=== PATIENT | male | born 2000 | race Caucasian/White ===

== ENCOUNTER 2023-01-04 13:04 | Emergency (ER) | payer OTHER, SELFPAY ==
[2023-01-04 13:12] VITALS: BP 128/82; PULSE 84; RESP 20; TEMP 37; O2SAT 100
--- NOTE | 2023-01-04 13:22 | ED.EXTPRO ---
HPI - Extremity Problem General Chief complaint: Extremity Problem,Nontraumatic Stated complaint: left foot ingrown toenail History of Present Illness HPI Narrative: Pt is a 22 y/o male, presents to with left great toe pain for the past two weeks secondary to an ingrown toenail. He denies modifying factors. he has no fevers or history of MRSA. Immunizations are UTD Related Data Allergies Allergy/AdvReac Type Severity Reaction Status Date / Time No Known Allergies Allergy Verified 01/04/23 13:12 Review of Systems Musculoskeletal: Comments: refer to HPI Exam Const: General: healthy appearing, no acute distress and alert Nutritional Appearance: well nourished Orientation/consciousness: patient oriented x3 HENMT: Head: normal to inspection Ears: external ears normal and TM's normal bilaterally Face/Nose/Sinus: Normal external nose present and Normal nares present Mouth: Yes Normal oral and palatal mucosa present and Yes lip normal Throat: posterior oropharynx normal Eyes: Conjunctivae: conjunctivae normal Pupils: Equal, round and reactive pupils present EOM: EOMs intact bilaterally Neck: Neck: normal visual inspection and no lymphadenopathy Resp: Effort & Inspection: normal respiratory effort Auscultation: clear to auscultation bilaterally Cardio: Rate: regular rate GI: GI Palp: Yes Soft to palpation Auscultation: normal bowel sounds Skin: Rashes: no rashes Neuro: General: patient oriented x3 and moves all extremities Cranial nerves: Yes Nystagmus not present Speech: normal speech Extrem: Other: pt has crusting and swelling along the fibular side with mild cuticle erythema. No active discharge, no lymphangitis Course Course Emergency Course: exam, plan for home oral abx, topical Bactroban and podiatry referral Level of Care: [facility] Care Visit ([id number]) Vital Signs Vital signs: Vital Signs Temperature 37.0 C 01/04/23 13:12 Pulse Rate 84 01/04/23 13:12 Respiratory Rate 20 01/04/23 13:12 Blood Pressure 128/82 01/04/23 13:12 Pulse Oximetry 100 01/04/23 13:12 Oxygen Delivery Room Air 01/04/23 13:12 Temperature 37.0 C 01/04/23 13:12 Pulse Rate 84 01/04/23 13:12 Respiratory Rate 20 01/04/23 13:12 Blood Pressure 128/82 01/04/23 13:12 Pulse Oximetry 100 01/04/23 13:12 Oxygen Delivery Room Air 01/04/23 13:12 MDM - Extremity (Nontraumatic) MDM Narrative Medical decision making narrative: abx, topical bactroban, podiatry follow up, Micheal ca pamphlet provided with podiatry list Differential Diagnosis Differential diagnosis: Likely other (cellulitis, ingrown toenail) Discharge Plan Discharge Clinical Impression: Ingrowing toenail of left foot Patient Disposition: Home, Self-Care Condition: Stable Instructions: Antibiotic Form, Ingrown Nail (ED) Additional Instructions: START AND COMPLETE ANTIBIOTICS DIRECTED. APPLY TOPICAL BACTROBAN OINTMENT. CONTACT PODIATRY FOR FOLLOW UP VISIT. Prescriptions: New mupirocin 2 % ointment 1 applic topical TID Qty: 22 0RF Rx Instructions: APPLY TO GREAT TOE TID FOR ONE WEEK sulfamethoxazole-trimethoprim [Bactrim DS] 800-160 mg tablet 1 tablet PO Q12H Qty: 20 0RF Follow-up/Referrals: PHYSICIAN,DIRECTOR SELECTION AND ADMINISTRATION [Primary Care Provider] - Time of Disposition: 13:47
== END 2023-01-04 13:51 | disposition home or self-care (01) ==
PROVIDERS: Emergency Provider Nurse Practitioner Family
DX: L60.0 Ingrowing nail (principal)
CPT/HCPCS: 99213; G0463

== ENCOUNTER 2024-10-13 12:39 | Outpatient (CLI) | payer OTHER, SELFPAY ==
[2024-10-13 13:04] LABS: Hematocrit 42.8 % (42.0-52.0); Hemoglobin 14.5 g/dL (14.0-18.0); Mean Corpuscular HGB Conc 33.9 g/dl (32-36); Mean Corpuscular Volume 91.5 fl (80-100); Mean Platelet Volume 9.7 fl (7.4-10.4); Platelet Count Result 296 k/mm3 (150-375); Red Blood Count 4.68 M/mm3 (4.6-6.20); Red Cell Distribution Width 12.2 % (11.5-14.5); White Blood Count 6.1 K/mm3 (4.5-10.0)
[2024-10-13 13:17] LABS: Alanine Aminotransferase 34 U/L (6-50); Albumin Level 4.4 g/dL (3.5-5.1); Alkaline Phosphatase 74 U/L (38-126); Anion Gap 6 mmol/L (4-12); Aspartate Amino Transferase 26 U/L (17-59); Bilirubin,Total 0.5 mg/dL (0.2-1.3); Blood Urea Nitrogen 20 mg/dL (9-20); CRP < 0.5 mg/dL (<1.0); Calcium 9.1 mg/dL (8.4-10.2); Carbon Dioxide 30 mmol/L (22-30); Chloride 102 mmol/L (98-107); Estimated Glomerular Filt Rate > 60; Glucose 109 mg/dL (65-110); Sodium 138 mmol/L (137-145)
--- OUTSIDE RECORDS SUMMARY | 2024-10-13 13:42 | XMS_ITS | Clinical Summary ---
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 Family History Medical History Relation Name Comments No Known Problems Father Relation Name Status Comments Father Social History Tobacco Use Types Packs/Day Years Used Date Smoking Tobacco: Never Smokeless Tobacco: Never Alcohol Use Standard Drinks/Week Comments Never 0 (1 standard drink = 0.6 oz pur e alcohol) AUDIT-C Answer Date Recorded Frequency of Alcohol Consumption Never 02/06/2019 Average Number of Drinks Not on file 019 Frequency of Binge Drinking Not on file 01/14 Personal Safety Answer Date Recorded Getting School Help Needed Not on file 09/28 Sex and Gender Information Value Date Recorded Sex Assigned at Not on file Legal Sex Male 11:01 PM 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 Gender Identity Not on file Sexual Orientation Not on file Obstetrics History Last Filed Vital Signs Vital Sign Reading Time Taken Comments Blood Pressure 135/85 07/17/2019 10:38 AM 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 TECHNICIAN Pulse 67 07/17/2019 10:38 AM 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 TECHNICIAN Temperature - - Respiratory Rate - - Oxygen Saturation - - Inhaled Oxygen Concentration - - Weight 93.8 kg (206 lb 12.8 oz) 020 10:38 AM 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 TECHNICIAN Height 190.5 cm (6' 3 ) 07/17/2019 10:3 8 AM 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 TECHNICIAN Body Mass Index 25.85 07/17/2019 10:38 AM 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 TECHNICIAN Plan of Treatment Not on file Insurance [facility] PPO [facility] CHOICE PLUS [facility] [place] [facility] CHOICE PLUS Care Teams Global Account Director Relationship Specialty Start Date End Date Fran Burton Jr., MD [address] [place] [address] PCP - General 01/07/15
--- OUTSIDE RECORDS SUMMARY | 2024-10-13 13:42 | XMS_ITS | Referral Summary ---
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 PROFESSOR Gender Identity Not on file Sexual Orientation Not on file Last Filed Vital Signs Vital Sign Reading Time Taken Comments Blood Pressure 135/85 07/17/2019 10:38 AM FOREST MANAGEMENT PROFESSOR Pulse 67 07/17/2019 10:38 AM FOREST MANAGEMENT PROFESSOR Temperature - - Respiratory Rate - - Oxygen Saturation - - Inhaled Oxygen Concentration - - Weight 93.8 kg (206 lb 12.8 oz) 020 10:38 AM FOREST MANAGEMENT PROFESSOR Height 190.5 cm (6' 3 ) 07/17/2019 10:3 8 AM FOREST MANAGEMENT PROFESSOR Body Mass Index 25.85 07/17/2019 10:38 AM FOREST MANAGEMENT PROFESSOR Plan of Treatment Not on file Insurance [facility] PPO [facility] HMO/PPO Address: [address] [place] [address] [facility] CHOICE PLUS [facility] CHOICE PLUS Care Teams Russian Language Professor Relationship Specialty Start Date End Date Fran Burton Jr., MD [address] [place] [address] PCP - General 01/07/15
--- OUTSIDE RECORDS SUMMARY | 2024-10-13 13:42 | XMS_ITS | Clinical Summary ---
Author Organization [facility] Address [address] [facility] [place] [address] Care Team Providers Care Patient Transportation Driver Name Role Phone Raul Burton MD Primary Care Provider [phone] Source Comments [facility],non-owned Affiliates and Associated Physician Practices is amultiple site organization consisting of ambulatory clinics and hospital sitesin [place], [place] and [place]. This disclosure is being madepursuant to the Care Everywhere program and may not contain all information available regarding this patient. Last updated 18.[facility] Allergies No known active allergies Medications Be aware that medications may not be up to date on this document. Always verify current medications with the patient. No known medications Social History Tobacco Use Types Packs/Day Years Used Date Smoking Tobacco: Never Smokeless Tobacco: Never Sex and Gender Information Value Date Recorded Sex Assigned at Not on file Gender Identity Not on file Sexual Orientation Not on file Last Filed Vital Signs Vital Sign Reading Time Taken Comments Blood Pressure 118/60 12/23/2017 4:04 PM CDT Pulse 69 12/23/2017 4:04 PM CDT Temperature 37.4 C (99.3 F) 12/23/2017 4:04 PM CDT Respiratory Rate 16 12/23/2017 4:04 PM CDT Oxygen Saturation - - Inhaled Oxygen Concentration - - Weight 81.6 kg (180 lb) 12/23/2017 4:04 PM CDT Height 185.4 cm (6' 1 ) 12/23/2017 4:04 PM CDT Body Mass Index 23.75 12/23/2017 4:04 PM CDT Plan of Treatment Health Maintenance Due Date Last Done Comments HIV SCREENING 2016 HPV VACCINE (1 - Male 3-dose series) 2016 MENINGOCOCCAL (Group B) VACC INE SHARED DECISION-MAKING (1 of 2 - Standard) 2017 HEPATITIS C SCREENING 03/15/2019 DTAP/TDAP/TD VACCINES (1 - Tdap) 2020 HEPATITIS B VACCINE (1 of 3 - 19+ 3-dose series) 2020 COVID-19 VACCINE (1 - 2023-2 5 season) 2024 INFLUENZA VACCINE (#1) 2024 DEPRESSION SCREENING 07/16/2024 ZOSTER VACCINE (1 of 2) 2051 HIB VACCINE Aged Out No longer eligi ble based on patient's age to complete this topic MENINGOCOCCAL GROUPS A/C/Y/W VACCINE Aged Out No longer eligible b ased on patient's age to complete this topic PNEUMOCOCCAL VACCINE Aged Out No long er eligible based on patient's age to complete this topic Care Teams Patient Transportation Driver Relationship Specialty Start Date End Date Raul Burton MD [address] [place] [address] PCP - General Pediatrics 12/23/17
[2024-10-13 14:12] LABS: Erythrocyte Sedimentation Rate 1 mm/hr (0-20)
== END 2024-10-13 12:40 | disposition home or self-care (01) ==
PROVIDERS: Visit Provider Nurse Practitioner
DX: K60.2 Anal fissure, unspecified (principal); K62.5 Hemorrhage of anus and rectum; R19.4 Change in bowel habit
CPT/HCPCS: 36415; 80053; 82784; 83516; 84443; 85027; 85652; 86140

== ENCOUNTER 2024-10-17 13:53 | Outpatient (CLI) | payer OTHER, SELFPAY ==
--- OUTSIDE RECORDS SUMMARY | 2024-10-17 13:57 | XMS_ITS | Referral Summary ---
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 CHOICE PLUS [facility] CHOICE PLUS Care Teams Laser Print Operator Relationship Specialty Start Date End Date Fran Burton Jr., MD [address] [place] [address] PCP - General 01/07/15
--- OUTSIDE RECORDS SUMMARY | 2024-10-17 13:57 | XMS_ITS | Clinical Summary ---
Author Organization [facility] Address [address] [place] [phone] Care Team Providers Care Zig Zag Stitcher Name Role Phone Micheal Nava MD, Fran [...] on file Legal Sex Male 11:01 PM PHOTO CARTOGRAPHER Gender Identity Not on file Sexual Orientation Not on file Obstetrics History Last Filed Vital Signs Vital Sign Reading Time Taken Comments Blood Pressure 135/85 07/17/2019 10:38 AM PHOTO CARTOGRAPHER Pulse 67 07/17/2019 10:38 AM PHOTO CARTOGRAPHER Temperature - - Respiratory Rate - - Oxygen Saturation - - Inhaled Oxygen Concentration - - Weight 93.8 kg (206 lb 12.8 oz) 020 10:38 AM PHOTO CARTOGRAPHER Height 190.5 cm (6' 3 ) 07/17/2019 10:3 8 AM PHOTO CARTOGRAPHER Body Mass Index 25.85 07/17/2019 10:38 AM PHOTO CARTOGRAPHER Plan of Treatment Not on file Insurance [facility] PPO [facility] CHOICE PLUS [facility] HMO/PPO Address: [address] [address] [place] [address] [facility] [place] [facility] CHOICE PLUS [facility] HMO/PPO Address: [address] [address] [place] [address] Care Teams Zig Zag Stitcher Relationship Specialty Start Date End Date Fran Burton Jr., MD [address] [place] [address] PCP - General 01/07/15
--- OUTSIDE RECORDS SUMMARY | 2024-10-17 13:57 | XMS_ITS | Continuity of Care Document ---
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 Christiane Fairbanks Date: 07/03/24 Spoke with member regarding LOD case. Member stated he has another PT appt today. Advised we received his previous PT notes yesterday. Advised we will need all future notes as well. Advised I will be submitting for a 15day extension for his Pre-MEDCON and will be emailing the information to his CC today. I also emailed his CC a Letter of Acknowledgement to sign yesterday. Member verbalized understanding. Received Letter of Acknowledgement from CC a few moments ago. Extracted from:Title: [facility] - Post-deployment continuing left hip pain Author: QUINTEN TYLER MD Date: 05/16/24 1. S train of muscle of left groin region 24 y.o. [facility] male seen for persisting left groin strain x3 months. Had been intermittent but seen in-theater for this in 24 Mar 2024 when worsening, trial on Ibuprofen 800mg Q8 and PRN Robaxin but no imrovement, given HEP to do on his own, and instructed to f/u with PCM on return if not resolved. Seen today continues to have difficulty with pain whenever lifting his leg and swinging outward to get in a car, when working out and doing squats or lunges, etc. On exam concur with in-theater exam that pain is mainly along the posteromedial thigh, no hamstring muscle or tendon pain, negative log roll, did have increased discomfort with hip ABduction a gainst resistance and interestingly no pain with ADduction, but consistent with hip sprain not improving w ith HEP. Charlie hutton would benefit from trial of skilled physical therapy for subacute l eft hip sprain, please eval and treat. 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 Aeromedical Disposition: Non-Fly Cleared for AFSC/MOS Duties: Yes Cleared for continued service: Y es Cleared for mobility duties: Y es Cleared for participation in physical fitness program: Y es PHA/MHA/DRHA: U TD. Visit deployment related: Y es No active profile MEB in progress: N oIMR/ASIMS Status: [X] Green (no action), Member aware. [X] Yellow (Action), Charlie hutton is currently due for D ental Class 1, Flu shot, post-deploy serum [X] RED (Action), Charlie hutton is currently OVERDUE for Extracted from:Title: Deployment Meds Author: Christiane Red Date: 09/17/23 Member completed his DHA1 during September and requires BW/CW meds. G6PD: Radha Addendum by SONYA CLANCY on September 19, 2023 09:17 STUDENT LIFE COORDINATOR [facility] predeployment orders for BW/CW If G6PD deficient we are substituting doxy for cipro ALLERGIES: N KDA BW/CW ordered for pharmacy o Three Antidote Treatment Nerve Agent Auto-injectors (ATNAA); o One Diazepam (DAYO) Auto-injector; o Six Ciprofloxacin 500mg tablets - or S ix Doxycycline 100mg tablets; o Forty-two Pyridostigmine [place] (ALEXEY) tablets; o Fourteen Potassium Iodide 130mg tablets; o One Reactive Skin Decontamination Lotion (RSDL) pouch. Extracted from:Title: DR1 APPT Author: MONICA HOWARD Date: 09/15/23 MEMBER HERE TO COMPLETE DRHA1 APPOINTMENT. Addendum by FRED PRIDE on September 15, 2023 10:56 STUDENT LIFE COORDINATOR PRE-DEPLOYMENT HEALTH ASSESSMENT ([id number] APR 2015) Last Name: NAEEM First Name: MIN Social Security Number: [id number] Date of : Gender: Male Service Branch: [employer]: [employer] Pay Grade: E4 Estimated date of upcoming deployment: Country: [place] Number of previous deployments: 0 Medical assessment/disposition: Deployable Medical assessment/disposition comments: Summary of provider's identified concerns needing referral: None identified Provider's Name: MAJ Obrien ANG, PA Date: 1. Address concerns identified on deployer questions 1 through 8. Self health rating: N/A Deployer's response: N/A Provider's comments: MEB or PEB: Deployer's response: N/A Provider's comments: Medical, dental or mental health concern: N/A Deployer's response: N/A Provider's comments: Head Injury: N/A Deployer's response: N/A Provider's comments: Medications: N/A Deployer's response: N/A Provider's comments: History of mental health care: N/A Deployer's response: N/A Provider's comments: 2. Member marked that they were not bothered by noises in head or ears or trouble hearing. 3. Deployer's AUDIT-C screening score was 1. (nothing required) 4. Deployer did not sami yes on two or more of questions 11a through 11d. 5. Deployer did not sami More than half the days or nearly every day on question 12a or 12b. 6. Deployer marked that they did not have a concern or a difficulty with a major life stressor. 7. Deployer has not been bothered by thoughts that they would be better off or of hurting themself in some way. 8. Deployer states that they have not had thoughts or concerns over the past month that they might hurt or lose control with someone. 9. Medical history review completed. a. Significant findings related to ability to deploy: b. There is no evidence of deployment limiting conditions or medications. 16. Supplemental services recommended/information provided: 1. Overall how would you rate your health during the PAST MONTH? : Excellent 2. Are you CURRENTLY on a profile, limited duty, waiting on a MOS/Medical Retention Board (MMRB) decision, or being referred to a medical evaluation board (MEB) or physical evaluation board (PEB)? : No 3. How often do you smoke tobacco (for example cigarettes, cigars, pipe or hookah)? : Some days 4. What problems, questions or concerns do you have about your medical, dental, or mental health? : No 6. In the PAST YEAR did you receive care for a head injury? : No 7. What prescription or over-the counter medications (including herbals/supplements) for sleep, pain, combat stress, or mental health conditions or concerns are you CURRENTLY taking? : None 8. During the PAST MONTH, how much have you been bothered by any of the following problems? : No 9. During the PAST MONTH, how much have you been bothered by any of the following problems? 9. a. Noises in your head or ears (such as ringing, buzzing, crickets, humming, tone, etc.) Not bothered at all 9. b. Trouble hearing Not bothered at all 10. a. How often do you have a drink containing alcohol? Monthly 10. b. How many drinks containing alcohol do you have on a typical day when you are drinking? 1 or 2 10. c. How often do you have six or more drinks on one occasion? Never 11. Have you ever had any experience that was so frightening, horrible, or upsetting that in the PAST MONTH, you: 11. a. Have had nightmares about it or thought about it when you did not want to? No 11. b. Tried hard not to think about it or went out of your way to avoid situations that remind you of it? No 11. c. Were constantly on guard, watchful or easily startled? No 11. d. [place] numb or detached from others, activities, or your surroundings No 12. Over the LAST 2 WEEKS, how often have you been bothered by the following problems? 12. a. Little interest or pleasure in doing things Not at all 12. b. Feeling down, depressed, or hopeless Not at all 13. a. Over the PAST MONTH, what major life stressors have you experienced that are a cause of significant concern or make it difficult for you to do your work, take care of things at home, or get along with other people (for example, serious conflicts with others, relationship problems, or a legal, disciplinary or financial problem)? : None Future Appointments Appointment Date: 10/20/2024 01:00:00 PM Scheduled Provider: ANKUR SANCHEZ PA Location: [id number] Appointment Type: MATTHWE FTDarrion Appointment Date: 10/27/2024 01:00:00 PM Scheduled Provider: BERKLEY BLANCHARD MD Location: [id number] Appointment Type: SPMD PROC Appointment Date: 11/24/2024 01:00:00 PM Scheduled Provider: SONIA ADAIR MD Location: [address] [place] [address] Appointment Type: SPMD PROC 10/17/2024 Ambulatory Pharmacy Functional Status Combined list of recent functional and cognitive assessments recorded at [employer] of [employer] and [employer] (VA).VA Functional [place] Measurement (FIM) Scale: 1 = Total Assistance (Subject = 0% +), 2 = Maximal Assistance (Subject = 25% +), 3 = Moderate Assistance (Subject = 50% +), 4 = Minimal Assistance (Subject = 75% +), 5 = Supervision, 6 = Modified [place] (Device), 7 = Complete [place] (Timely, Safely). Assessment Date/Time Source Assessment Type Assessment Skill Assessment Score Assessment Details No data available for this section
--- OUTSIDE RECORDS SUMMARY | 2024-10-17 13:57 | XMS_ITS | Clinical Summary ---
Author Organization [facility] Address [address] [facility] [place] [address] Care Team Providers Care Service Observer Name Role Phone Raul Burton MD Primary Care Provider [phone] Source Comments [facility],non-owned Affiliates and Associated Physician Practices is amultiple site organization consisting of ambulatory clinics and hospital sitesin [place], [place], [place] and [place]. This disclosure is being madepursuant to the Care Everywhere program and may not contain all information available regarding this patient. Last updated 18.[facility] Allergies No known active allergies Medications Be [...] age to complete this topic Care Teams Service Observer Relationship Specialty Start Date End Date Raul Burton MD [address] [place] [id number] PCP - General Pediatrics 12/23/17
[2024-10-23 17:44] LABS: Calprotectin, Stool 17 mcg/g
== END 2024-10-17 13:54 | disposition home or self-care (01) ==
LOC: ANHLAB 13:55
PROVIDERS: Visit Provider Nurse Practitioner
DX: K60.2 Anal fissure, unspecified (principal); K62.5 Hemorrhage of anus and rectum; R19.4 Change in bowel habit
CPT/HCPCS: 83993; 87045; 87177; 87209; 87427; 87449